=== PATIENT | male | born 1935 | race Caucasian/White ===

== ENCOUNTER 2024-11-06 06:22 | Day surgery (SDC) | payer MEDICARE, SELFPAY ==
[2024-10-09 13:00] VITALS: BMI 28.6
[2024-10-09 13:45] LABS: Hematocrit 44.3 % (39.0-52.0); Hemoglobin 14.8 g/dL (13.0-18.0); Mean Corp Hgb Conc. 33.4 g/dL (33.0-37.0); Mean Corpuscular Hgb 34.3 pg (27.0-31.0); Mean Corpuscular Volume 102.8 fL (80.0-94.0); Mean Platelet Volume 10.7 fL (7.4-10.4); Platelet Count 167 10^3/uL (130-400); Red Blood Cell Count 4.31 10^6/uL (4.70-6.10); Red Cell Dist. Width 15.6 % (11.5-14.5); White Blood Cell Count 4.7 10^3/uL (4.8-10.8)
[2024-10-09 14:28] LABS: ALT (SGPT) 18 U/L (0-50); AST (SGOT) 26 U/L (17-59); Albumin 4.4 g/dl (3.5-5.0); Alkaline Phosphatase 59 U/L (38-126); Blood Urea Nitrogen 21 mg/dl (9-20); Calcium 9.5 mg/dl (8.4-10.2); Carbon Dioxide 28 mmol/L (22-30); Chloride 97 mmol/L (98-107); Estimated Creatinine Clearance 48 ml/min; Glucose 86 mg/dl (70-99); Potassium 4.5 mmol/L (3.5-5.1); Sodium 136 mmol/L (135-145); Total Bilirubin 0.6 mg/dl (0.2-1.3); Total Protein 6.7 g/dl (6.3-8.2); eGFR > 60.00
[2024-10-09 14:38] LABS: Glycohemoglobin (HgbA1c) 5.8 % (4.0-5.6)
[2024-10-31 11:26] VITALS: BMI 28.6
--- NOTE | 2024-10-31 13:48 | VNURNOTE ---
Chart reviewed. Called patient twice and left a message requesting call back. Called patient's spouse who stated pt was unavailable to talk. Per H&P pt to start outpt PT either Weds or Wed of the week of surgery. He will stay overnight post-op.
[facility] remains available if needed. Will follow up closer to surgical date.
--- NOTE | 2024-11-01 12:22 | VNURNOTE ---
Received call back from patient. He did not remember if the plan was to stay overnight post op. Per OR list he is SDS w/ PSR. Advised patient to call Ortho for clarification. Patient confirmed he has outpt PT scheduled 'on in [place].'
Outpt PT scheduled on 11/09 per pt.
[2024-11-06] VITALS (14 sets, daily range): BP systolic 99–136; BP diastolic 67–77
[2024-11-06] MEDS: TYLENOL 650 MG PO ×3 (12:09→23:54)
[2024-11-06] MEDS: CELEBREX 200 MG PO (12:09)
[2024-11-06] MEDS: NORMOSOL-R/PLASMALYTE-A 1000 IV ×2 (12:10→20:28)
--- NOTE | 2024-11-06 14:44 | W.PN.UPDATE ---
Update Note
Progress Note Update
L TKA Dr. Szymanski 11/06/24
PAF-appears to be on no oral anticoagulation-cardiology note unclear--CHADs Vasc 4-monitor on tele, if arrhythmia occurs, will utilize Eliquis 2.5mg bid dosing for blood clot prevention
[id number]-[id number] unaware to continue asa uninterrupted and have d/c--will dose ASA post-op immediately for prevention of cardiac and neurovascular events
Psoriatic arthritis-will include IV Decadron inpatient and additional pain management-resume Methotrexate POD#2 -Cefadroxil ppx
--- NOTE | 2024-11-06 14:59 | W.DS.TRANS ---
DC Summary - Manager Local
-
Discharge Instructions:
Sleep Apnea Risk Intermediate
Discharge Diagnosis/Procedures L TKA Dr. Szymanski 11/06/24
Diet As tolerated
Activity With Walker
Driving Restrictions No driving
Bathing Restrictions OK to Shower
Other Services PT
Instructions:
Stand-Alone Forms: Total Hip/Knee Replacement D/C
Changes to Home Medications: Yes
Discharge Medications:
DC Medications w/original date entered in [employer]
aspirin 81 mg tablet,delayed release (Ecotrin Low Strength) 81 mg PO DAILY 10/31/24
atorvastatin 20 mg tablet 20 mg PO HS 10/31/24
cholecalciferol (vitamin D3) 125 mcg (5,000 unit) tablet (Vitamin D3) 125 mcg PO DAILY 10/31/24
cyanocobalamin (B12)-cobamamide 5,000 mcg-100 mcg sublingual lozenge (B12) 1 walter sublingual DAILY 10/31/24
diphenhydramine 25 mg-acetaminophen 500 mg/15 mL oral solution 1 ml PO HS 10/31/24
hydrochlorothiazide 25 mg tablet 25 mg PO DAILY PRN swelling 10/31/24
leucovorin calcium 10 mg tablet 10 mg PO QWEEK 10/31/24
lisinopril 20 mg tablet 20 mg PO HS 10/31/24
lysine 500 mg tablet 1 mg PO BID 10/31/24
magnesium 250 mg tablet 250 mg PO DAILY 10/31/24
methotrexate sodium 2.5 mg tablet See Rx Instructions .Route .COMPLEX 10/31/24
mupirocin 2 % topical ointment 1 applic topical BID 10/31/24
nabumetone 500 mg tablet 1 mg PO DAILY 10/31/24
omeprazole 40 mg capsule,delayed release 40 mg PO DAILY 10/31/24
vitamin A 2,400 mcg capsule 2,400 mcg PO DAILY 10/31/24
Saccharomyces boulardii 250 mg capsule (Florastor) 250 mg PO BID #1 cap 11/06/24
acetaminophen 325 mg tablet (Tylenol) 1,000 mg (3.0769 x 325 mg) PO QID #0 tabs 11/06/24
aspirin 325 mg tablet 325 mg PO DAILY blood clot prevention #1 tab 11/06/24
cefadroxil 500 mg capsule 500 mg PO BID infection prevention #14 caps 11/06/24
celecoxib 100 mg capsule 100 mg PO BID Anti-inflammatory #14 caps 11/06/24
dexamethasone 4 mg tablet 4 mg PO BID inflammation #6 tabs 11/06/24
docusate sodium 100 mg capsule (Colace) 100 mg PO BID stool softner #1 cap 11/06/24
magnesium hydroxide 400 mg/5 mL oral suspension (Milk of Magnesia) 30 ml PO HS PRN Constipation #1 mL 11/06/24
ondansetron 4 mg disintegrating tablet 4 mg PO Q6H PRN n/v #20 tabs 11/06/24
oxycodone 5 mg tablet 5 mg PO Q6H PRN 1 tab moderate pain, 2 tabs severe pain #30 tabs 11/06/24
sennosides 8.6 mg tablet (Senokot) 17.2 mg (2 x 8.6 mg) PO BID laxative #2 tabs 11/06/24
Home Medication Changes
Saccharomyces boulardii 250 mg capsule (Florastor) 250 mg PO BID #1 cap 11/06/24
acetaminophen 325 mg tablet (Tylenol) 1,000 mg (3.0769 x 325 mg) PO QID #0 tabs 11/06/24
aspirin 325 mg tablet 325 mg PO DAILY blood clot prevention #1 tab 11/06/24
cefadroxil 500 mg capsule 500 mg PO BID infection prevention #14 caps 11/06/24
celecoxib 100 mg capsule 100 mg PO BID Anti-inflammatory #14 caps 11/06/24
dexamethasone 4 mg tablet 4 mg PO BID inflammation #6 tabs 11/06/24
docusate sodium 100 mg capsule (Colace) 100 mg PO BID stool softner #1 cap 11/06/24
magnesium hydroxide 400 mg/5 mL oral suspension (Milk of Magnesia) 30 ml PO HS PRN Constipation #1 mL 11/06/24
ondansetron 4 mg disintegrating tablet 4 mg PO Q6H PRN n/v #20 tabs 11/06/24
oxycodone 5 mg tablet 5 mg PO Q6H PRN 1 tab moderate pain, 2 tabs severe pain #30 tabs 11/06/24
sennosides 8.6 mg tablet (Senokot) 17.2 mg (2 x 8.6 mg) PO BID laxative #2 tabs 11/06/24
Pending Results: No
[2024-11-06] MEDS: ROXICODONE 5 MG PO (17:22)
--- NOTE | 2024-11-06 19:11 | PTCARENOTE ---
pt admitted to room 2110 at 1835. pt drowsy. oriented to room, call garcia, bed controls and plan of care with verbalized understanding. telemetry placed and reading SR. at bedside. Left knee surgical dressing with scant amount of
drainage noted. good movement, sensation and + pedal pulses noted. eating dinner tray at present time. denies pain. care ongoing.
[2024-11-06] MEDS: COLACE 100 MG PO (20:15)
[2024-11-06] MEDS: ASPIRIN 325 MG PO (20:15)
[2024-11-06] MEDS: ULTRAM 50 MG PO (20:15)
[2024-11-06] MEDS: BACTROBAN 2% OINTMENT 1 APPLIC NASAL (20:15)
[2024-11-06] MEDS: SENOKOT PO (20:16)
[2024-11-06] MEDS: DECADRON 6 MG IV (20:18)
[2024-11-06] MEDS: TORADOL 15 MG IV (20:18)
[2024-11-06] MEDS: ANCEF 5 IV (21:27)
[2024-11-06] MEDS: NEURONTIN 300 MG PO (21:28)
[2024-11-06] MEDS: PROTONIX 40 MG PO (21:28)
[2024-11-06] MEDS: LIPITOR 20 MG PO (21:28)
[2024-11-06] MEDS: TYLENOL ORAL SOLUTION 500 MG PO (21:28)
[2024-11-06] MEDS: BENADRYL ELIXIR 25 MG PO (21:28)
[2024-11-06] MEDS: ROXICODONE 10 MG PO (23:54)
[2024-11-07] MEDS: TYLENOL 650 MG PO ×3 (03:04→12:23)
[2024-11-07 03:06] VITALS: BP 112/70
[2024-11-07] MEDS: ANCEF 5 IV (05:42)
[2024-11-07] MEDS: DECADRON 6 MG IV (05:43)
[2024-11-07] MEDS: ULTRAM 50 MG PO (05:44)
[2024-11-07] MEDS: TORADOL 15 MG IV (05:44)
[2024-11-07 06:43] VITALS: BP 102/61
[2024-11-07] MEDS: ASPIRIN 325 MG PO (08:04)
[2024-11-07] MEDS: SENOKOT 17.2 MG PO (08:04)
[2024-11-07] MEDS: BACTROBAN 2% OINTMENT 1 APPLIC NASAL (08:04)
[2024-11-07] MEDS: COLACE 100 MG PO (08:05)
[2024-11-07] MEDS: CELEBREX 200 MG PO (08:05)
--- NOTE | 2024-11-07 10:44 | W.PN.ORTHO ---
Today's Communication / Plan
-
d/c
Assessment
.
Distal Motor Intact: Yes
Dressing:
Clean, dry and intact.
Assessment:
PAF-appears to be on no oral anticoagulation-cardiology note unclear--CHADs Vasc 4-stable on tele
[id number]-tjizwatnoy unaware to continue asa uninterrupted and have d/c--will dose ASA post-op immediately for prevention of cardiac and neurovascular events
Cmvnxrhegce-mai-Nznpflzbp x1 dose to prevent home orthostasis
Psoriatic arthritis-will include IV Decadron inpatient and additional pain management-resume Methotrexate POD#2 -Cefadroxil ppx
Plan
.
Surgery / Date: Celena Szymanski 11/06/24
DVT Prophylaxis: Aspirin
Activity:
Out of bed.
PT/OT
Discharge Plan: Home w/ Outpatient PT
Subjective
.
.:
Patient resting comfortably.
Vital Signs and Labs
.
Vital Signs and Labs:
Lab Results
10/09/24 12:44
10/09/24 12:44
Temp Pulse Resp BP Pulse Ox
97.2 F 62 18 102/61 94
11/07/24 06:43 11/07/24 06:43 11/07/24 06:43 11/07/24 06:43 11/07/24 08:10
Non-invasive Hgb result: 10.7
Physical Exam
-
HEENT: No pallor, cyanosis, or jaundice. Throat clear.
NECK: Supple. No JVD.
RESPIRATORY: Lungs clear to auscultation.
CVS: S1, S2 normal. RRR.� No murmur, rub or gallop.
ABDOMEN: Soft, non-tender. No distension. BS+/normal.
EXTREMITIES: strength equal, no calf pain with palpation
PETROLEUM ANALYST: AOx3. No focal deficits. front loader residential driver grossly intact
[2024-11-07 11:03] VITALS: BP 90/56
[2024-11-07] MEDS: ProAmatine 5 MG PO (11:05)
[2024-11-07 11:16] VITALS: BP 101/62; BP 93/60
--- NOTE | 2024-11-07 13:06 | CM ---
Addendum entered by Emma Hinson 11/07/24 14:25:
[facility] does not accept insurance, sent to [facility]. they will reach out to patient to discuss delivery.
Original Note:
Patient seen at bedside with family member present. Extensive discussion about therapy outpatient vs home health due to VN consult. PA clarified that patient should have outpatient therapy already set up for . IMM completed and patient
requested CM send script for the walker [facility] with no available walkers CM will send walker script to [facility]. Patient family member to transport patient home. CM will continue to follow for discharge planning needs.
Plan; home with outpatient therapy and walker script sent to [facility] for delivery at patient request.
--- NOTE | 2024-11-07 13:11 | PTCARENOTE ---
clarification of discharge order with tiger text to Rosemary Hernández. pt to followup with scheduled out pt physical therapy at [facility] as previously arranged. no home care or home PT.
== END 2024-11-07 13:12 | disposition home or self-care (01) ==
LOC: SDS 06:22
PROVIDERS: ATTENDING PHYSICIAN Specialist; FAMILY PHYSICIAN Internal Medicine; OTHER PHYSICIAN Internal Medicine Rheumatology; REFERRING PHYSICIAN Internal Medicine Cardiovascular Disease
DX: M17.12 Unilateral primary osteoarthritis, left knee (principal)
CPT/HCPCS: 27447; 36415; 73560; 80053; 83036; 85027; 87070; 93005; 97110; 97116; 97162; 97166; 97530; C1713; C1776